=== PATIENT | female | born 1970 | race Caucasian/White ===

== ENCOUNTER 2017-03-05 12:11 | Emergency (ER) | payer OTHER ==
[~2017-03-05] VITALS: Ht 165.1 cm; Wt 81.6 kg
--- NOTE | 2017-03-05 14:00 | ED NECK/BACK PAIN COMPLAINT ---
History of Present Illness General Chief Complaint: General Adult Stated Complaint: R BUTTOCK PAIN Source: patient Exam Limitations: no limitations Vital Signs & Intake/Output Vital Signs & Intake/Output Vital Signs Date Time Temp Pulse Resp B/P B/P Pulse O2 O2 Flow FiO2 Mean Ox Delivery Rate 03/05 1425 96.7 94 16 146/84 97 Room Air 03/05 1216 98.2 109 20 157/116 97 Room Air Allergies Coded Allergies: No Known Allergies (03/05/17) Triage Note: PT TO ED C/O RIGHT BUTTOCK PAIN A FEW DAYS. DENIES ANY OBVIOUS INJURY. HAS BEEN TAKING IBUPROFEN WITH NO RELIEF. STATES PAIN IS WORSE WITH WEIGHT BEARING. Triage Nurses Notes Reviewed? yes Onset: Gradual Duration: getting worse Timing: recent history Quality/Severity: severe Radiation: buttocks HPI: Patient is a 47-year-old female who presents emergency room stating that approximately one year ago she began working out in a regular basis where she was complaining of mild right-sided gluteal pain in which recently approximately one to 2 months ago she discontinued the workouts where her right-sided gluteal pain had improved however patient this week restarted her workout program and has been complaining of a gradual onset of right-sided gluteal pain with mild radiation behind the back of her leg. Patient has been taking ibuprofen with no relief of symptoms. Denies any mechanism injury trauma fever chills bowel or bladder incontinence or saddle paresthesia or leg swelling. (HECTOR ABURTO) Reconcile Medications Losartan/Hydrochlorothiazide (Losartan-Hctz 100-12.5 MG Tab) 100 MG-12.5 MG TABLET 1 TAB PO DAILY HEART (Reported) Norethindrone-E.estradiol-Iron (Microgestin Fe 1-20 Tablet) 1 MG-20 MCG (21)/75 MG (7) TABLET 1 TAB PO DAILY BC (Reported) (MANOLO PIEDRA DO) Past History Travel History Traveled to [place] past 21 day No Medical History Any Pertinent Medical History? see below for history Cardiovascular: hypertension Surgical History Surgical History: non-contributory Psychosocial History What is your primary language Slovak Tobacco Use: Never used ETOH Use: denies use Illicit Drug Use: denies illicit drug use Family History Hx Contributory? No (HECTOR ABURTO) Review of Systems Review of Systems Constitutional: Reports: no symptoms. Eyes: Reports: no symptoms. Ears, Nose, Throat, Mouth: Reports: no symptoms. Respiratory: Reports: no symptoms. Cardiovascular: Reports: no symptoms. Gastrointestinal/Abdominal: Reports: no symptoms. Musculoskeletal: Reports: see HPI, muscle pain. Skin: Reports: no symptoms. Neurological/Psychological: Reports: no symptoms. All Other Systems: Reviewed and Negative (HECTOR ABURTO) Physical Exam Physical Exam General Appearance: mild distress Neck: normal inspection, supple, full range of motion Straight Leg Raising: Right: Negative. Left: Negative. Skin: intact, normal color, warm/dry Comments: HEENT: Normal EENT exam, Neck: Supple, no lymphadenopathy, normal range of motion without pain or tenderness Back: Nontender, no CVA tenderness. Abdomen: Soft, nontender nondistended, no appreciable organomegaly. Normal bowel sounds. No ascites Extremity: No edema, no calf tenderness to palpation, normal and equal pulses. Right hip normal inspection active range of motion noted with hip extension reproduced localized right gluteal pain. Point tenderness noted Generalized gluteal region Full active range of motion noted No erythema no warmth no fluctuance 5 out of 5 resisted range of motion noted with pain with hip extension Right knee normal inspection Right lower extremity dermatomes intact pedal pulse +2 DTRs intact Neuro: Alert oriented x3, motor sensory normal, Skin: No appreciable rash on exposed skin, skin is warm and dry. Psych: Mood and affect is normal, memory and judgment is normal. Diagram Body: 1) Noted point tenderness (HECTOR ABURTO) Progress Differential Diagnosis: C spine injury, carotid dissection, cauda equina syn, herniated disc, myofascial strain, pyelo/UTI, sciatica, spinal cord inj, thoracic outlet syn, T/L spine injury, ureterolithiasis Plan of Care: Orders Procedure Date/time Status Durable Medical Equipment 03/05 2422 Active Patient's bilateral lower extremity was neurovascularly intact. Patient shows no concerns of cellulitis or infectious process. Patient has reproducible pain upon gluteal muscle actions. Patient will be treated for concerns of sciatica and gluteal strain. (HECTOR ABURTO) Departure Departure Disposition: HOME OR SELF CARE Condition: Stable Clinical Impression Primary Impression: Sciatica, right side Secondary Impressions: Muscle strain of right gluteal region Referrals: WADE JAIME,ROJAS Guajardo (PCP/Family) Additional Instructions: As discussed begin icing the area directly 20 minutes every 2 hours. Begin the prescription of ketorolac for pain and inflammation, begin the prescription Medrol Dosepak for inflammation, BEGIN the prescription of Percocet for breakthrough pain relief. Begin using the crutches until YOU can walk without pain. If no better on Saturday follow-up with your established orthopedic DR. CERNA. If symptoms worsen return to emergency room. Activity as tolerated Departure Forms: Customer Survey General Discharge Information (HECTOR ABURTO) PA/CERTIFIED MEDICAL DOSIMETRIST Co-Sign Statement Statement: ED Attending supervision documentation- [] I saw and evaluated the patient. I have also reviewed all the pertinent lab results and diagnostic results. I agree with the findings and the plan of care as documented in the PA's/CERTIFIED MEDICAL DOSIMETRIST's documentation. [x] I have reviewed the ED Record and agree with the PA's/CERTIFIED MEDICAL DOSIMETRIST's documentation. [] Additions or exceptions (if any) to the PAs/CERTIFIED MEDICAL DOSIMETRIST's note and plan are summarized below: [] (MANOLO PIEDRA DO
[2017-03-05] MEDS ORDERED: MICROGESTIN FE1 EAC1 PO (14:14)
[2017-03-05] MEDS ORDERED: LOSARTAN-HCTZ1 EACH PO (14:14)
[2017-03-05 14:25] VITALS: BP 146/84
== END 2017-03-05 14:26 ==
LOC: ERH 12:11
DX: S76.011A Strain of muscle, fascia and tendon of right hip, initial encounter (principal); M54.31 Sciatica, right side; X50.9XXA Other and unspecified overexertion or strenuous movements or postures, initial encounter; Y93.89 Activity, other specified; Y92.9 Unspecified place or not applicable
CPT/HCPCS: 96372; J1885